=== PATIENT | male | born 1990 ===

== ENCOUNTER 2019-03-02 11:15 | Emergency (ER) | payer SELFPAY ==
--- NOTE | 2019-03-02 12:05 | CT ---
EXAM: Brain CTWithout contrast: HISTORY: Injury from a fall COMPARISON: None FINDINGS: Minimal posterior scalp swelling. No focal mass or midline shift. No intra or extra-axial hemorrhage. Sinuses and mastoids are clear of acute process. IMPRESSION: No mass or bleed or other significant acute intracranial process.
--- NOTE | 2019-03-02 12:11 | CT ---
Cervical spine CT scan without IV contrast: HISTORY: Injury from a fall with neck pain FINDINGS: No evidence for acute fracture or dislocation. No significant malalignment. IMPRESSION: Unremarkable cervical spine CT.
== END 2019-03-02 13:11 | disposition home or self-care (01) ==
LOC: ERS 11:15
DX: S16.1XXA Strain of muscle, fascia and tendon at neck level, initial encounter (principal); F17.210 Nicotine dependence, cigarettes, uncomplicated; W19.XXXA Unspecified fall, initial encounter
CPT/HCPCS: 70450; 72126